=== PATIENT | male | born 2000 | race Caucasian/White ===

== ENCOUNTER 2021-06-23 08:19 | Emergency (ER) | payer OTHER ==
[~2021-06-23] VITALS: Ht 177.8 cm; Wt 68.0 kg
[2021-06-23 10:00] LABS: INFLUENZA A ANTIGEN Positive (Negative); INFLUENZA B ANTIGEN Negative (Negative)
[2021-06-23] MEDS ORDERED: TESSALON PERLE100 MG PO (10:10)
[2021-06-23] MEDS ORDERED: TAMIFLU75 MG PO (10:10)
[2021-06-23] MEDS ORDERED: ZOFRAN ODT4 MG DISSOLVE (10:10)
[2021-06-23 10:28] VITALS: BP 124/65
== END 2021-06-23 10:15 | disposition home or self-care (01) ==
LOC: M.ERS 08:19
PROVIDERS: Emergency Medicine Emergency Medical Services
DX: J10.1 Influenza due to other identified influenza virus with other respiratory manifestations (principal); Z20.822 Contact with and (suspected) exposure to COVID-19